=== PATIENT | female | born 1945 | race Caucasian/White ===

== ENCOUNTER 2018-12-26 19:05 | Inpatient (IN) | payer MEDICARE, BC ==
[~2018-12-26] VITALS: Ht 165.1 cm; Wt 54.5 kg
[2018-12-26] MEDS ORDERED: ondansetron/PF 4mg/2ml inj IV ONE (19:20)
[2018-12-26] MEDS: morphine 4 MG/ML inj SYRINge IV PRN ×2 (19:46→20:11)
[2018-12-26 20:10] LABS: BASOPHILS # (AUTO) 0.1 X10'3 (0-0.2); BASOPHILS % (AUTO) 0.5 % (0-1); EOSINOPHILS % (AUTO) 0.3 % (0-6); HEMATOCRIT 40.9 % (35.0-45.0); HEMOGLOBIN 13.6 g/dl (12.0-16.0); LYMPHOCYTES # (AUTO) 0.7 X10'3 (1.1-4.8); LYMPHOCYTES % (AUTO) 6.1 % (21-51); MEAN CORPUSCULAR HEMOGLOBIN 30.5 PG (27.0-31.0); MEAN CORPUSCULAR HGB CONC 33.3 g/dL (33.0-36.5); MEAN CORPUSCULAR VOLUME 91.5 FL (78-98); MEAN PLATELET VOLUME 8.1 FL (7.4-10.4); MONOCYTES # (AUTO) 0.6 X10'3 (0-0.9); MONOCYTES % (AUTO) 4.8 % (2-12); NEUTROPHILS # (AUTO) 10.5 X10'3 (1.8-7.7); NEUTROPHILS % (AUTO) 88.3 % (42-75); PLATELET COUNT 236 X10'3 (140-440); RED BLOOD COUNT 4.47 X10'6 (4.20-5.60); RED CELL DISTRIBUTION WIDTH 13.3 % (11.5-14.5); WHITE BLOOD COUNT 11.9 X10'3 (4.5-11.0)
[2018-12-26 20:22] LABS: PARTIAL THROMBOPLASTIN TIME 23 SECONDS (22-32)
[2018-12-26 20:26] LABS: ALANINE AMINOTRANSFERASE 19 U/L (12-78); ALBUMIN 3.7 G/DL (3.4-5.0); ALBUMIN/GLOBULIN RATIO 1.1 (1.1-1.5); ALKALINE PHOSPHATASE 64 IU/L (46-116); ANION GAP 11 (8-16); ASPARTATE AMINO TRANSFERASE 21 U/L (10-37); BILIRUBIN,TOTAL 0.5 MG/DL (0.1-1.0); BLOOD UREA NITROGEN 11 MG/DL (7-18); BUN/CREATININE RATIO 13.3 (6.6-38.0); CALCIUM 8.6 MG/DL (8.5-10.1); CHLORIDE 102 MMOL/L (99-107); CREATININE 0.83 MG/DL (0.40-0.90); GLUCOSE 120 MG/DL (70-104); POTASSIUM 4.4 MMOL/L (3.5-5.1); SODIUM 138 MMOL/L (135-145); TOTAL CARBON DIOXIDE 25.2 MMOL/L (24-32); TOTAL PROTEIN 7.1 G/DL (6.4-8.2); eGFR 67 ML/MIN
[2018-12-26 20:28] LABS: CLARITY,URINE CLEAR (Clear); COLOR,URINE YELLOW (Yellow); GLUCOSE, URINE NEGATIVE (Neg); KETONES,URINE NEGATIVE (Neg); LEUKOCYTE ESTERASE ,URINE NEGATIVE (Neg); NITRITES, URINE NEGATIVE (Neg); OCCULT BLOOD,URINE NEGATIVE (Neg); PH,URINE 5.5 (4.8-8.0); PROTEIN,URINE NEGATIVE (Neg); UROBILINOGEN,URINE 0.2 E.U/dL (0.2-1.0)
[2018-12-26 20:29] LABS: UA COLLECTION TYPE FOLEY CATH
[2018-12-26] MEDS ORDERED: DIPH-423 PO (20:40)
[2018-12-26] MEDS ORDERED: ondansetron/PF 4mg/2ml inj IV PRN (21:25)
[2018-12-26] MEDS ORDERED: CADD PCA waste documentation MC PRN (21:25)
[2018-12-26] MEDS ORDERED: naloxone 0.4 mg/ml inj IV PRN ×2 (21:25)
[2018-12-26] MEDS ORDERED: acetaminophen 325mg tablet PO PRN (21:25)
[2018-12-26] MEDS ORDERED: mag hydrox/Alum hydrox/simeth 30ml oral suspension PO PRN (21:25)
[2018-12-26] MEDS ORDERED: CADD PCA waste documentation MC SCH (21:25)
[2018-12-26] MEDS ORDERED: magnesium hydroxide 30ml (MOM) UD suspension PO PRN (21:25)
[2018-12-26 22:03] VITALS: BP 123/77
[2018-12-26] MEDS: normal saline 1000ml 1,000 ML IV SCH (22:21)
[2018-12-26] MEDS: HYDROmorphone/NS 1 mg/ml CADD 50 ML IV SCH (22:51)
[2018-12-26] MEDS ORDERED: HYDROmorphone/NS 1 mg/ml CADD 50 ML IV SCH (23:00)
[2018-12-27] VITALS (20 sets, daily range): BP systolic 100–128; BP diastolic 66–85
[2018-12-27] MEDS: HYDROmorphone/NS 1 mg/ml CADD 50 ML IV SCH ×7 (01:00→13:00)
[2018-12-27 05:47] LABS: BASOPHILS # (AUTO) 0.1 X10'3 (0-0.2); BASOPHILS % (AUTO) 0.6 % (0-1); EOSINOPHILS # (AUTO) 0.1 X10'3 (0-0.9); EOSINOPHILS % (AUTO) 0.6 % (0-6); HEMATOCRIT 38.9 % (35.0-45.0); HEMOGLOBIN 13.1 g/dl (12.0-16.0); LYMPHOCYTES # (AUTO) 0.8 X10'3 (1.1-4.8); LYMPHOCYTES % (AUTO) 8.5 % (21-51); MEAN CORPUSCULAR HGB CONC 33.8 g/dL (33.0-36.5); MEAN CORPUSCULAR VOLUME 91.9 FL (78-98); MEAN PLATELET VOLUME 7.7 FL (7.4-10.4); MONOCYTES # (AUTO) 0.5 X10'3 (0-0.9); MONOCYTES % (AUTO) 5.7 % (2-12); NEUTROPHILS # (AUTO) 7.6 X10'3 (1.8-7.7); NEUTROPHILS % (AUTO) 84.6 % (42-75); PLATELET COUNT 209 X10'3 (140-440); RED BLOOD COUNT 4.23 X10'6 (4.20-5.60)
--- NOTE | 2018-12-27 06:10 | NUR ---
Report given to Rosalee DIGGS.
[2018-12-27 06:27] LABS: ALANINE AMINOTRANSFERASE 18 U/L (12-78); ALBUMIN 3.4 G/DL (3.4-5.0); ALKALINE PHOSPHATASE 62 IU/L (46-116); ANION GAP 7 (8-16); ASPARTATE AMINO TRANSFERASE 19 U/L (10-37); BILIRUBIN,TOTAL 0.6 MG/DL (0.1-1.0); BLOOD UREA NITROGEN 13 MG/DL (7-18); BUN/CREATININE RATIO 12.7 (6.6-38.0); CALCIUM 8.6 MG/DL (8.5-10.1); CHLORIDE 103 MMOL/L (99-107); CREATININE 1.02 MG/DL (0.40-0.90); GLUCOSE 113 MG/DL (70-104); POTASSIUM 4.5 MMOL/L (3.5-5.1); SODIUM 139 MMOL/L (135-145); TOTAL CARBON DIOXIDE 28.7 MMOL/L (24-32); TOTAL PROTEIN 6.9 G/DL (6.4-8.2); eGFR 53 ML/MIN
--- NOTE | 2018-12-27 06:30 | NUR ---
Patient in room ORTHO 4016. I have received report from CATERINA Vaz and had the opportunity to ask questions and assume patient care.
[2018-12-27] MEDS: docusate sod 100mg capsule PO SCH ×2 (08:00→19:23)
[2018-12-27] MEDS: normal saline 1000ml 1,000 ML IV SCH ×2 (08:52→16:02)
[2018-12-27] MEDS ORDERED: potassium Cl 20 mEq SR tablet PO PRN ×2 (08:55)
[2018-12-27] MEDS ORDERED: potassium CL 10mEq/100ml bag 100 ML IV PRN (08:55)
[2018-12-27] MEDS ORDERED: magnesium Cl slow-release 64mg tablet PO PRN (08:55)
[2018-12-27] MEDS ORDERED: magnesium 4gm in 100ml NS 100 ML IV PRN (08:55)
[2018-12-27] MEDS ORDERED: albuterol 2.5 MG/3 ML nebule ONE (09:38)
[2018-12-27] MEDS ORDERED: albuterol 2.5 MG/3 ML nebule NEB PRN (09:45)
[2018-12-27] MEDS ORDERED: ceFAZolin 1GM/D5W- ADD-VANTAGE 50 ML IV ONE (13:00)
[2018-12-27] MEDS ORDERED: fentaNYL/PF 50MCG/1 ML 2ML syringe ONE (13:44)
[2018-12-27] MEDS ORDERED: midazolam 2 mg/2 ml injection ONE (13:44)
[2018-12-27] MEDS ORDERED: ceFAZolin 1000mg inj ONE ×3 (13:45→14:19)
[2018-12-27] MEDS ORDERED: ketamine 50mg/5ml syringe ONE (14:01)
[2018-12-27] MEDS ORDERED: metoprolol tartrate 1mg/ml inj IV ONE (14:19)
--- NOTE | 2018-12-27 14:30 | NUR ---
ADMITTED TO PACU FROM OR ACCOMPANIED BY ANESTHESIA. INTIAL PHYSICAL ASSESSMENT DONE AND RECORDED. REPORT RECEIVED FROM ANESTHESIA.
[2018-12-27] MEDS ORDERED: ringers solution, lacted 1,000 ML IV SCH (14:33)
[2018-12-27] MEDS ORDERED: morphine 4 MG/ML inj SYRINge IV PRN (14:35)
[2018-12-27] MEDS ORDERED: ondansetron/PF 4mg/2ml inj IV PRN (14:35)
--- NOTE | 2018-12-27 15:30 | NUR ---
Pt returned from Recovery room at 1530. Oxygen at 92% on 4 liters/nc. Pts sat up and down from 86% to 88%. Pt lethargic at this time and is only minimally responding to verbal stimuli to cough and deep breath. Pt has moist non productive cough. Pt continued to go up and down on pulse oximetry reading. Maintained 0xygen at 4L/NC via cannula in pts mouth. Pt is a mouth breather. Pulse Ox dropped to 84-86% at 1730. Oxygen increased to 5 liters/nc by Natanael Sepulveda RN at 1730. Pt non verbal most of the time during recovery period. Family at bedside. Will continue to monitor closely. Unable to use pulse oximeter at this time. Encouraged to cough and deep breathe frequently. Report given to Татьяна at 1800.
--- NOTE | 2018-12-27 15:30 | NUR ---
PACU DISCHARGE CRITERIA MET, REPORT GIVEN TO FLOOR. DENIES PAIN OR DISCOMFORT, TRANSFERRED TO ROOM IN STABLE GOOD CONDITION.
[2018-12-27] MEDS: ceFAZolin 1GM/D5W- ADD-VANTAGE 50 ML IV SCH ×2 (15:56→23:49)
--- NOTE | 2018-12-27 18:00 | NUR ---
Problems reprioritized. Patient report given, questions answered & plan of care reviewed with CATERINA Vaz.
[2018-12-27] MEDS: HYDROcodone/acetaminophen 5mg/325mg tablet PO PRN (22:42)
[2018-12-28 02:00] VITALS: BP 108/77
[2018-12-28] MEDS: normal saline 1000ml 1,000 ML IV SCH ×3 (02:39→23:22)
[2018-12-28] MEDS: HYDROcodone/acetaminophen 5mg/325mg tablet PO PRN ×4 (02:50→20:26)
[2018-12-28 06:00] VITALS: BP 108/75
[2018-12-28 06:08] LABS: BASOPHILS % (AUTO) 0.3 % (0-1); EOSINOPHILS % (AUTO) 0.5 % (0-6); HEMATOCRIT 34.2 % (35.0-45.0); HEMOGLOBIN 11.7 g/dl (12.0-16.0); LYMPHOCYTES # (AUTO) 0.5 X10'3 (1.1-4.8); LYMPHOCYTES % (AUTO) 5.1 % (21-51); MEAN CORPUSCULAR HEMOGLOBIN 31.3 PG (27.0-31.0); MEAN CORPUSCULAR HGB CONC 34.1 g/dL (33.0-36.5); MEAN CORPUSCULAR VOLUME 91.7 FL (78-98); MEAN PLATELET VOLUME 8.2 FL (7.4-10.4); MONOCYTES # (AUTO) 0.4 X10'3 (0-0.9); NEUTROPHILS # (AUTO) 8.6 X10'3 (1.8-7.7); NEUTROPHILS % (AUTO) 90.1 % (42-75); PLATELET COUNT 150 X10'3 (140-440); RED BLOOD COUNT 3.73 X10'6 (4.20-5.60); RED CELL DISTRIBUTION WIDTH 13.1 % (11.5-14.5); WHITE BLOOD COUNT 9.6 X10'3 (4.5-11.0)
--- NOTE | 2018-12-28 06:15 | NUR ---
Patient in room ORTHO 4016. I have received report from Татьяна Le and had the opportunity to ask questions and assume patient care.
[2018-12-28 06:23] LABS: ANION GAP 9 (8-16); BLOOD UREA NITROGEN 13 MG/DL (7-18); BUN/CREATININE RATIO 16.9 (6.6-38.0); CALCIUM 8.4 MG/DL (8.5-10.1); CHLORIDE 104 MMOL/L (99-107); CREATININE 0.77 MG/DL (0.40-0.90); GLUCOSE 108 MG/DL (70-104); POTASSIUM 4.3 MMOL/L (3.5-5.1); SODIUM 137 MMOL/L (135-145); TOTAL CARBON DIOXIDE 24.5 MMOL/L (24-32); eGFR 73 ML/MIN
[2018-12-28 06:24] LABS: ALANINE AMINOTRANSFERASE 17 U/L (12-78); ALBUMIN 2.7 G/DL (3.4-5.0); ALBUMIN/GLOBULIN RATIO 0.9 (1.1-1.5); ALKALINE PHOSPHATASE 54 IU/L (46-116); ASPARTATE AMINO TRANSFERASE 16 U/L (10-37); BILIRUBIN,TOTAL 0.5 MG/DL (0.1-1.0); MAGNESIUM 1.5 MG/DL (1.5-2.4); TOTAL PROTEIN 5.8 G/DL (6.4-8.2)
--- NOTE | 2018-12-28 06:30 | NUR ---
Report given to Moira DIGGS.
[2018-12-28] MEDS: aspirin 325mg tablet, delayed-release (Ecotrin) PO SCH (07:16)
[2018-12-28] MEDS: docusate sod 100mg capsule PO SCH ×2 (07:16→20:00)
[2018-12-28 08:00] VITALS: BP 103/76
--- NOTE | 2018-12-28 11:39 | NUR ---
Joint Replacement Consult: Pt s/p joint surgery and seen by RD for written/verbal high protein ed w/ RD contact information provided. Pt reports nausea and low appetite post-op refusing solid foods. Pt agreeable to torito shelbi, mashed potatoes, and jellox2 for lunch today; dietary notified. [facility] 12/27. Will continue to monitor. Addendum: 12/28/18 at [address] Amended: Links added.
--- NOTE | 2018-12-28 11:41 | NUR ---
with the assistance of nursing staff, geriatric nursing assistant pulled pt taylor cath per md orders (remove taylor pod 2)
--- NOTE | 2018-12-28 11:48 | NUR ---
Student documentation: I have reviewed all interventions, assessments performed and documented by Ren [facility].
[2018-12-28 18:00] VITALS: BP 124/77
--- NOTE | 2018-12-28 18:06 | NUR ---
Problems reprioritized. Patient report given, questions answered & plan of care reviewed with Татьяна Le
[2018-12-28 22:00] VITALS: BP 95/62
[2018-12-29] MEDS: HYDROcodone/acetaminophen 5mg/325mg tablet PO PRN ×2 (05:21→11:00)
[2018-12-29 05:40] LABS: BASOPHILS % (AUTO) 0.4 % (0-1); EOSINOPHILS # (AUTO) 0.3 X10'3 (0-0.9); EOSINOPHILS % (AUTO) 4.4 % (0-6); HEMATOCRIT 31.6 % (35.0-45.0); HEMOGLOBIN 10.7 g/dl (12.0-16.0); LYMPHOCYTES # (AUTO) 0.5 X10'3 (1.1-4.8); LYMPHOCYTES % (AUTO) 8.2 % (21-51); MEAN CORPUSCULAR HEMOGLOBIN 31.1 PG (27.0-31.0); MEAN CORPUSCULAR HGB CONC 33.8 g/dL (33.0-36.5); MEAN CORPUSCULAR VOLUME 92.1 FL (78-98); MEAN PLATELET VOLUME 8.4 FL (7.4-10.4); MONOCYTES # (AUTO) 0.4 X10'3 (0-0.9); MONOCYTES % (AUTO) 5.5 % (2-12); NEUTROPHILS # (AUTO) 5.4 X10'3 (1.8-7.7); NEUTROPHILS % (AUTO) 81.5 % (42-75); PLATELET COUNT 134 X10'3 (140-440); RED BLOOD COUNT 3.43 X10'6 (4.20-5.60); RED CELL DISTRIBUTION WIDTH 13.1 % (11.5-14.5); WHITE BLOOD COUNT 6.6 X10'3 (4.5-11.0)
[2018-12-29 06:00] VITALS: BP 111/78
[2018-12-29 06:00] LABS: ALANINE AMINOTRANSFERASE 11 U/L (12-78); ALBUMIN 2.4 G/DL (3.4-5.0); ALBUMIN/GLOBULIN RATIO 0.8 (1.1-1.5); ALKALINE PHOSPHATASE 51 IU/L (46-116); ANION GAP 4 (8-16); ASPARTATE AMINO TRANSFERASE 21 U/L (10-37); BILIRUBIN,TOTAL 0.5 MG/DL (0.1-1.0); BLOOD UREA NITROGEN 10 MG/DL (7-18); BUN/CREATININE RATIO 15.9 (6.6-38.0); CALCIUM 8.1 MG/DL (8.5-10.1); CHLORIDE 104 MMOL/L (99-107); CREATININE 0.63 MG/DL (0.40-0.90); GLUCOSE 88 MG/DL (70-104); MAGNESIUM 1.5 MG/DL (1.5-2.4); POTASSIUM 4.1 MMOL/L (3.5-5.1); SODIUM 137 MMOL/L (135-145); TOTAL CARBON DIOXIDE 28.7 MMOL/L (24-32); TOTAL PROTEIN 5.6 G/DL (6.4-8.2); eGFR > 90 ML/MIN
--- NOTE | 2018-12-29 06:23 | NUR ---
Report given to Constanza DIGGS.
--- NOTE | 2018-12-29 06:29 | NUR ---
Patient in room ORTHO 4016. I have received report from Татьяна DIGGS and had the opportunity to ask questions and assume patient care.
--- NOTE | 2018-12-29 06:41 | NUR ---
Patient in room ORTHO 4016. I have received report from Татяьна DIGGS and had the opportunity to ask questions and assume patient care.
[2018-12-29] MEDS: normal saline 1000ml 1,000 ML IV SCH (06:58)
[2018-12-29] MEDS: docusate sod 100mg capsule PO SCH (07:48)
[2018-12-29] MEDS: aspirin 325mg tablet, delayed-release (Ecotrin) PO SCH (07:48)
--- NOTE | 2018-12-29 08:34 | NUR ---
I have reviewed and agree with all medications administered and interventions performed by [facility] Student([facility] K[facility])
[2018-12-29 09:42] VITALS: BP 102/69
--- NOTE | 2018-12-29 10:40 | NUR ---
Student documentation: I have reviewed all interventions, assessments performed and documented by Vikki Adams. Student Medication Administration: For this medication-pass time frame, all medication were reviewed, dispensed, administered and documented per hospital policy by Vikki [facility].
--- NOTE | 2018-12-29 11:35 | NUR ---
Patient discharged to [facility]
--- NOTE | 2018-12-29 11:52 | NUR ---
Patient stable for discharge to [facility] today. Reports Called to Nissa at [facility]. IV out and all belongings sent with patient.
== END 2018-12-29 11:35 | DRG 481 ==
LOC: ER 19:06 → ED HOLD 21:33 → CMPBEDREQ 21:47 → ORTHO 4S 21:50
PROVIDERS: ADMIT Internal Medicine; ATTEND Family Medicine
PROC: 0QS606Z Reposition Right Upper Femur with Intramedullary Internal Fixation Device, Open Approach (ICD-10-PCS; principal; 2018-12-27 13:36)
DX: S72.141A Displaced intertrochanteric fracture of right femur, initial encounter for closed fracture (principal); D62 Acute posthemorrhagic anemia; F17.210 Nicotine dependence, cigarettes, uncomplicated; J44.9 Chronic obstructive pulmonary disease, unspecified; W01.10XA Fall on same level from slipping, tripping and stumbling with subsequent striking against unspecified object, initial encounter; M81.0 Age-related osteoporosis without current pathological fracture; Z90.710 Acquired absence of both cervix and uterus; Y93.89 Activity, other specified; Y92.098 Other place in other non-institutional residence as the place of occurrence of the external cause; Y99.8 Other external cause status; Z79.899 Other long term (current) drug therapy; Z71.6 Tobacco abuse counseling; Z79.82 Long term (current) use of aspirin
CPT/HCPCS: 36415; 70450; 71045; 73502; 76000; 80053; 81003; 82948; 83735; 85025; 85610; 85730; 86885; 86900; 86901; 87081; 93005; 94640; 94760; 96374; 96375; 97110; 97112; 97116; 97530; 97535; 99285; A4618; A6222; A7000; C1713; G0378; J0690; J1170; J2250; J2270; J2405; J3010; J3370; J3490; J7030; J7120